=== PATIENT | female | born 1975 | race African-American/Black ===

== ENCOUNTER 2017-06-08 14:47 | Emergency (ER) | payer OTHER ==
[~2017-06-08] VITALS: Ht 167.6 cm; Wt 108.6 kg
[2017-06-08 15:25] LABS: HEMATOCRIT 39.5 % (36.0-46.0); HEMOGLOBIN 13.4 G/DL (11.9-15.5); MCH 31.9 PG (29.0-34.0); MCHC 33.9 G/DL (30.0-36.0); PLATELET COUNT 297 K/uL (156-360); RBC DIS.WIDTH-CV 12.4 % (11.8-14.6); WHITE BLOOD COUNT 9.3 K/uL (4.1-10.2)
[2017-06-08 15:39] LABS: ALBUMIN 3.9 g/dL (3.2-4.8); CHLORIDE 104 mEq/L (99-109); POTASSIUM 3.9 mEq/L (3.7-5.4); SODIUM 138 mEq/L (136-147)
[2017-06-08 15:41] LABS: GLUCOSE 150 mg/dL (70-99); TOTAL PROTEIN 7.8 g/dL (6.4-8.3)
[2017-06-08 15:43] LABS: TOTAL BILIRUBIN 0.3 mg/dL (0.0-1.0)
[2017-06-08 15:45] LABS: ALKALINE PHOSPHATASE 85 IU/L (3-129); GFR ESTIMATE (CALCULATED) > 59 mL/min/
[2017-06-08 15:46] LABS: UREA NITROGEN (BUN) 11 mg/dL (9-23)
[2017-06-08 15:47] LABS: AST (GOT) 16 IU/L (2-34)
[2017-06-08 15:48] LABS: ALT (GPT) 15 IU/L (3-49); LIPASE 63 U/L (1.0-51.0)
[2017-06-08 15:55] LABS: QUANTITATIVE HCG < 4.0 MIU/ML
[2017-06-08 16:00] LABS: APPEARANCE CLEAR ((CLEAR)); BILIRUBIN NEGATIVE; BLOOD MODERATE; COLOR YELLOW ((YELLOW)); GLUCOSE (STRIP) NEGATIVE; KETONES NEGATIVE; LEUKOCYTES NEGATIVE; NITRITE NEGATIVE; PROTEIN (STRIP) NEGATIVE; SPECIFIC GRAVITY 1.018 (1.000-1.030); UROBILINOGEN 0.2 MG/DL (0.2-1.0)
[2017-06-08 16:10] LABS: BACTERIA RARE /HPF; CALCIUM OXALATE CRYSTALS 2+ /HPF; EPITHELIAL CELLS RARE /HPF; MUCUS TRACE /LPF; UCUL ADDED? NO; WHITE BLOOD CELLS 0-5 /HPF (0-5)
[2017-06-08] MEDS ORDERED: BENTYL20 MG PO (20:11)
[2017-06-08] MEDS ORDERED: ZOFRAN ODT8 MG PO (20:11)
[2017-06-08 20:35] VITALS: BP 181/85
== END 2017-06-08 20:37 | disposition home or self-care (01) ==
LOC: EME 14:47
DX: R10.12 Left upper quadrant pain (principal); R31.9 Hematuria, unspecified; I10 Essential (primary) hypertension; F17.200 Nicotine dependence, unspecified, uncomplicated; Z88.0 Allergy status to penicillin
CPT/HCPCS: 74176; 80053; 81003; 83690; 84702; 85027; 99281; 99284; J1885